=== PATIENT | male | born 1990 | race Caucasian/White ===

== ENCOUNTER 2025-03-04 13:05 | Emergency (ER) | payer OTHER ==
[2025-03-04] MEDS ORDERED: Sodium Chloride 0.9% 10 ML Syringe FLUSH PRN (13:19)
[2025-03-04] MEDS: Ondansetron 4 MG/2 ML SDV IVPUSH ONE (13:31)
[2025-03-04] MEDS: Ketorolac 30 MG/ML SDV IVPUSH ONE (13:31)
[2025-03-04 13:42] LABS: BASOPHILS ABSOLUTE AUTO 0.04 10^3/uL (0.00-0.10); BASOPHILS PERCENT AUTO 0.5 % (0.0-1.0); EOSINOPHILS ABSOLUTE AUTO 0.13 10^3/uL (0.10-0.30); EOSINOPHILS PERCENT AUTO 1.5 % (1.0-3.0); IMMATURE GRAN ABSOLUTE AUTO 0.01 10^3/uL (0.00-0.04); IMMATURE GRAN PERCENT AUTO 0.1 % (0.0-0.4); LYMPHOCYTES ABSOLUTE AUTO 2.34 10^3/uL (1.00-4.00); LYMPHOCYTES PERCENT AUTO 27.5 % (20.0-40.0); MEAN PLATELET VOLUME 10.0 fL (7.4-10.4); MONOCYTES ABSOLUTE AUTO 0.63 10^3/uL (0.10-0.80); MONOCYTES PERCENT AUTO 7.4 % (2.0-8.0); NEUTROPHILS ABSOLUTE AUTO 5.35 10^3/uL (2.50-7.00); NEUTROPHILS PERCENT AUTO 63.0 % (50.0-70.0); PLATELET COUNT,PLT 319 10^3/uL (150-400); RED BLOOD CELL COUNT 5.04 10^6/uL (4.50-6.00); RED CELL DISTRIBUTION WIDTH 12.1 % (11.5-14.5); WHITE BLOOD CELL COUNT,WBC 8.50 10^3/uL (5.00-10.00)
[2025-03-04 14:01] LABS: ALANINE AMINOTRANSFERASE,ALT 39 U/L (14-63); ASPARTATE AMNIOTRANSFERASE,AST 17 U/L (15-37); BILIRUBIN TOTAL 0.8 mg/dL (0.2-1.0); BLOOD UREA NITROGEN,BUN 11 mg/dL (7-18); CARBON DIOXIDE,CO2 26.8 mmol/L (21.0-32.0); CHLORIDE,CL 103 mmol/L (98-107); CREATININE 0.80 mg/dL (0.51-1.17); EST CRCL DRUG DOSING (CG) 154.04 mL/min; ESTIMATED GFR 118 mL/min (>=60); GLUCOSE RANDOM 108 mg/dL (70-140); POTASSIUM,K 4.0 mmol/L (3.5-5.1); PROTEIN TOTAL,TP 7.5 g/dL (6.4-8.2); SODIUM,NA 142 mmol/L (136-145)
[2025-03-04 14:05] LABS: B-TYPE NATRIURETIC PEPTIDE,BNP 12 pg/mL (0-100)
== END 2025-03-04 15:53 | disposition home or self-care (01) ==
LOC: KA.ED 13:05
DX: R07.89 Other chest pain (principal); M25.512 Pain in left shoulder; F41.9 Anxiety disorder, unspecified; I10 Essential (primary) hypertension; Z91.030 Bee allergy status; Z79.899 Other long term (current) drug therapy
CPT/HCPCS: 71046; 73030-LT; 80053; 83605; 83880; 84484; 85025; 85379; 86140; 96361; 96374; 96375; 99285-25; J1885; J2405; J7030